=== PATIENT | male | born 1940 | race Hispanic/Latino ===

== ENCOUNTER → 2021-09-07 | Day surgery (SDC) | payer MEDICARE ==
[2021-09-05 10:25] LABS: BASOPHILS # (AUTO) 0.1 (0.0-0.1); BASOPHILS % 1.5 % (0.0-1.0); EOSINOPHILS # (AUTO) 0.2 (0.0-0.4); EOSINOPHILS % 4.9 % (0.0-6.0); HEMATOCRIT 40.1 % (38.2-49.6); HEMOGLOBIN 12.8 g/dL (14.0-18.0); LYMPHOCYTES # (AUTO) 1.2 (1.0-3.2); LYMPHOCYTES % 29.6 % (18.0-39.1); MEAN CORPUSCULAR HEMOGLOBIN 28.9 pg (28-32); MEAN CORPUSCULAR HGB CONC 31.9 g/dL (31-35); MEAN CORPUSCULAR VOLUME 90.5 fL (81-99); MONOCYTES # (AUTO) 0.5 (0.2-0.8); MONOCYTES % 12.6 % (4.4-11.3); NEUTROPHILS % 51.1 % (38.7-80.0); PLATELET COUNT 127 x10e3/uL (140-360); RED BLOOD COUNT 4.43 x10e6/uL (4.3-5.7); RED CELL DISTRIBUTION WIDTH 13.9 % (11.7-14.4)
[2021-09-05 10:45] LABS: ANION GAP 11.7 mmol/L (8-16); CALCIUM 9.8 mg/dL (8.4-10.2); CREATININE, SERUM 1.15 mg/dL (0.72-1.25); POTASSIUM 3.7 mmol/L (3.5-5.1)
[~2021-09-07] MED LIST: ADVAIR 500/501 EA INH; ALBUTEROL SULF IH; ARICEPT10 M1 PO; ARIDIA PO; ASMANEX220 MC1 IH; BALANCED SALT SOLN (OPTH) 15 ML BTL IO ONE; BUPIVACAINE HC 0.75% PF 10ML VIAL INJ ONE; CALCIUM D3 PO; CYCLOPENTOLATE HCL 2% OPTH SOLN 2 ML BTL OP ONE; DALIRESP500 MCG PO; EPINEPHRINE HCL 1:1000 1ML 1 MG/ML AMP ONE; FENTANYL CITRATE/PF 100MCG/2 ML INJ ONE; GATIFLOXACIN(OPTH) 5 ML LIQD ONE; GLIPIZIDE5 MG PO; GUAIFENESIN600 MG PO; IPRATROPIU0.2 MG/1 M; IPRATROPIUM; KLOR-CON M2020 MEQ PO; LANTUS SQ; LASIX10 MG/ML PO; LENALIDOMIDE; LIDOCAINE 2% /EPINEPHRINE 20 ML SDV INJ ONE; LIDOCAINE HCL-PF 4% 40 MG/1 ML 5ML AMP ONE; LIDOCAINE PATCH TD; LORATADINE10 MG PO; LORTAB 7.5-5001 EACH PO; MIDAZOLAM HCL 2 MG/2 ML VIAL ONE; NAPROXEN250 MG PO; OMEPRAZOLE20 M1 PO; PHENYLEPHRINE HCL 2 ML DROPS ONE; PILOCARPINE HCL(OPTH) 15 ML LIQD ONE; POVIDONE IODINE 0.05% 0.05 % ML PO ONE; POVIDONE IODINE 5% (OPTH) 30 ML BTL ONE; PROAIR INHALER INH; PROPOFOL IV EMULSION 10 MG/ML 20 ML VIAL ONE; SPIRIVA INH; TOBRAMYCIN/DEXAMETHASONE(OPTH) 3.5 GM TUBE ONE; TRELEGY ELLIPT1 EACH INH; VITAMIN C 250250 MG PO; Z DILTIAZEM; Z.0.COUMADIN2.5 MG; Z.0.COZAAR100 MG; Z.0.CYCLOBENZAPRINE1 PO; Z.0.DIAZEPAM5 MG; Z.0.ISOSORBIDE DINI3; Z.0.KLOR-CON20 MEQ; Z.0.SINGULAIR10 MG PO; Z.0.ZETIA10 MG PO; Z.0.ZOCOR20 MG PO; Z.0.ZOLOFT50 MG PO; Z.3.HYDROCODON-ACE1; ZYRTEC PO; [UNRECOGNIZED DRUG - CODE] PO; [UNRECOGNIZED DRUG - OTHER]; [UNRECOGNIZED DRUG - OTHER]; [UNRECOGNIZED DRUG - OTHER] PO
[2021-09-07 10:24] VITALS: BP 152/96
== END | disposition home or self-care (01) ==
LOC: OR 06:50
PROVIDERS: ATTEND Ophthalmology
DX: H25.11 Age-related nuclear cataract, right eye (principal); C90.01 Multiple myeloma in remission; E11.9 Type 2 diabetes mellitus without complications; I25.10 Atherosclerotic heart disease of native coronary artery without angina pectoris; E78.5 Hyperlipidemia, unspecified; I25.2 Old myocardial infarction; I10 Essential (primary) hypertension; J44.9 Chronic obstructive pulmonary disease, unspecified; K21.9 Gastro-esophageal reflux disease without esophagitis; K57.90 Diverticulosis of intestine, part unspecified, without perforation or abscess without bleeding; H91.90 Unspecified hearing loss, unspecified ear; E66.9 Obesity, unspecified; G89.29 Other chronic pain; R56.9 Unspecified convulsions; Z01.810 Encounter for preprocedural cardiovascular examination; Z01.812 Encounter for preprocedural laboratory examination; Z20.822 Contact with and (suspected) exposure to COVID-19; Z79.84 Long term (current) use of oral hypoglycemic drugs; Z79.899 Other long term (current) drug therapy; Z68.30 Body mass index [BMI] 30.0-30.9, adult; Z86.73 Personal history of transient ischemic attack (TIA), and cerebral infarction without residual deficits; Z95.810 Presence of automatic (implantable) cardiac defibrillator; Z98.61 Coronary angioplasty status; Z87.891 Personal history of nicotine dependence
CPT/HCPCS: 36415; 66984; 80048; 85025; 93005; J0171; J2001; J2250; J2704; J3010; U0002

== ENCOUNTER → 2021-10-05 | Day surgery (SDC) | payer MEDICARE ==
[~2021-10-05] MED LIST changes: +ATROPINE SULFATE 1 MG/ML VIAL ONE; +DEXTROSE 5% 250ML 250 ML IV ONE; +GLYCOPYRROLATE INJ 0.2 MG/ML VIAL ONE; +LIDOCAINE HCL 2% LOCAL INJ 5 ML SDV VIAL INJ ONE; -PILOCARPINE HCL(OPTH) 15 ML LIQD ONE; -POVIDONE IODINE 5% (OPTH) 30 ML BTL ONE
[2021-10-05 12:45] VITALS: BP 149/79
== END | disposition home or self-care (01) ==
LOC: OR 10:10
PROVIDERS: ATTEND Ophthalmology
DX: H25.12 Age-related nuclear cataract, left eye (principal); I10 Essential (primary) hypertension; E11.9 Type 2 diabetes mellitus without complications; K21.9 Gastro-esophageal reflux disease without esophagitis; E66.9 Obesity, unspecified; G89.29 Other chronic pain; J44.9 Chronic obstructive pulmonary disease, unspecified; I25.10 Atherosclerotic heart disease of native coronary artery without angina pectoris; Z01.812 Encounter for preprocedural laboratory examination; Z20.822 Contact with and (suspected) exposure to COVID-19; Z79.84 Long term (current) use of oral hypoglycemic drugs; Z79.899 Other long term (current) drug therapy; Z98.61 Coronary angioplasty status; Z95.810 Presence of automatic (implantable) cardiac defibrillator; Z86.73 Personal history of transient ischemic attack (TIA), and cerebral infarction without residual deficits
CPT/HCPCS: 36415; 66984; 82948; J0171; J0461; J2001 ×2; J2250; J2704; J3010; J7070; U0002; V2632